=== PATIENT | female | born 1980 ===

== ENCOUNTER → 2018-03-24 | Emergency (ER) | payer OTHER ==
[~2018-03-24] VITALS: Ht 167.6 cm; Wt 71.7 kg
[~2018-03-24] MED LIST: FOLIC ACID0.4 MG; PNEU16DI2; PRENATABS FA T1 EACH
== END | disposition home or self-care (01) ==
LOC: ER 10:15
DX: O20.0 Threatened abortion (principal); Z34.01 Encounter for supervision of normal first pregnancy, first trimester

== ENCOUNTER → 2018-04-08 | Emergency (ER) | payer OTHER ==
[~2018-04-08] VITALS: Ht 167.6 cm; Wt 70.3 kg
== END | disposition home or self-care (01) ==
LOC: ER 19:32
DX: O20.0 Threatened abortion (principal); Z34.82 Encounter for supervision of other normal pregnancy, second trimester

== ENCOUNTER 2018-08-10 20:00 | Outpatient (CLI) | payer OTHER | END 2018-08-11 15:31 | disposition still patient (30) | LOC: OBS/DEL 20:00 → LDR 08-11 15:31 → OBS/DEL 08-11 15:31 → LDR 08-11 15:35 | DX: O14.13 Severe pre-eclampsia, third trimester (principal); Z34.83 Encounter for supervision of other normal pregnancy, third trimester ==

== ENCOUNTER 2018-08-11 15:35 | Inpatient (IN) | payer OTHER ==
[~2018-08-11] VITALS: Ht 167.6 cm; Wt 0.5 kg
== END 2018-08-15 17:59 | disposition home or self-care (01) | DRG 786 ==
LOC: LDR 15:35 → OB/GYN 08-13 08:32
PROVIDERS: ADMIT Obstetrics & Gynecology
PROC: 4A1HXCZ Monitoring of Products of Conception, Cardiac Rate, External Approach (ICD-10-PCS; 2018-08-11)
PROC: 4A033R1 Measurement of Arterial Saturation, Peripheral, Percutaneous Approach (ICD-10-PCS; 2018-08-12)
PROC: 10D00Z1 Extraction of Products of Conception, Low, Open Approach (ICD-10-PCS; principal; 2018-08-12 07:00)
DX: O14.13 Severe pre-eclampsia, third trimester (principal); O60.14X0 Preterm labor third trimester with preterm delivery third trimester, not applicable or unspecified; O45.8X3 Other premature separation of placenta, third trimester; O34.211 Maternal care for low transverse scar from previous cesarean delivery; O36.5930 Maternal care for other known or suspected poor fetal growth, third trimester, not applicable or unspecified; O14.23 HELLP syndrome (HELLP), third trimester; O75.82 Onset (spontaneous) of labor after 37 completed weeks of gestation but before 39 completed weeks gestation, with delivery by (planned) cesarean section; Z3A.29 29 weeks gestation of pregnancy; Z37.0 Single live birth

== ENCOUNTER 2020-12-16 21:01 | Inpatient (IN) | payer OTHER ==
[~2020-12-16] VITALS: Ht 167.6 cm; Wt 2638.0 kg
[2020-12-16] MEDS ORDERED: ECOTRIN81 MG PO (22:58)
== END 2020-12-20 15:12 | disposition home or self-care (01) | DRG 785 ==
LOC: SURG-SUITE 21:01 → LDR 21:01 → OB/GYN 12-17 15:22 → SURG-SUITE 12-17 17:24
PROVIDERS: ADMIT Obstetrics & Gynecology; ATTEND Obstetrics & Gynecology
PROC: 0UB70ZZ Excision of Bilateral Fallopian Tubes, Open Approach (ICD-10-PCS; 2020-12-17)
PROC: 4A1HXFZ Monitoring of Products of Conception, Cardiac Rhythm, External Approach (ICD-10-PCS; 2020-12-17)
PROC: 10D00Z1 Extraction of Products of Conception, Low, Open Approach (ICD-10-PCS; principal; 2020-12-17 14:00)
DX: O99.113 Other diseases of the blood and blood-forming organs and certain disorders involving the immune mechanism complicating pregnancy, third trimester (principal); D69.6 Thrombocytopenia, unspecified; O14.23 HELLP syndrome (HELLP), third trimester; O30.043 Twin pregnancy, dichorionic/diamniotic, third trimester; O34.211 Maternal care for low transverse scar from previous cesarean delivery; Z3A.35 35 weeks gestation of pregnancy; Z37.2 Twins, both liveborn; Z30.2 Encounter for sterilization; Z20.822 Contact with and (suspected) exposure to COVID-19